=== PATIENT | female | born 1930 | race Caucasian/White ===

== ENCOUNTER 2017-06-15 11:09 | Emergency (ER) | payer MEDICARE, OTHER ==
[2017-06-15 11:21] VITALS: BP 158/98
--- NOTE | 2017-06-15 13:07 | ERNOTE ---
Medical Problem HPI - Narrative Date of Service: 06/15/17 - General Chief Complaint: General Assessment Time Seen by Provider: 06/15/17 11:23 Source: family Exam Limitations: no limitations - Immun/Allergies/Home Medications Immunizations: IMMUNIZATION HX Immunizations Up to Date Yes History of Influenza Vaccine No Allergies/Adverse Reactions: Allergies No Known Allergies Allergy (Verified 06/15/17 11:21) Home Medications: HOME MEDICATIONS Calcium Carbonate/Vitamin D3 [Calcium 500 + Vit D3 400 Tab] 1 tab PO DAILY 10/17 [Last Taken 11/09/14 12:00 1TAB] Folic Acid 1 mg PO DAILY 10/17/14 [Last Taken 11/10/14 08:00 1MG] Magnesium 200 mg PO DAILY 10/17/14 [Last Taken 11/10/14 08:00 200MG] Metoprolol Succinate [Toprol Xl] 50 mg PO BID 10/17/14 [Last Taken 11/09/14 12: 00 50MG] Multivitamin [Multi Vitamin Daily] 1 each PEG DAILY 10/17/14 [Last Taken 08:00 1TAB] Omeprazole [Prilosec] 20 mg PO DAILY 10/17/14 [Last Taken 11/10/14 08:00 20MG] Ferrous Sulfate 325 mg PO TID 08/04/15 [Last Taken Unknown] Levothyroxine Sodium [Levoxyl] 25 mcg PO DAILY 08/04/15 [Last Taken Unknown] Polyethylene Glycol 3350 [Miralax] 17 gm PO DAILY 08/04/15 [Last Taken Unknown] - History of Present History Narrative: Clogged G-tube since this morning. No other problems or complaints. Had G- tube originally placed 5 years ago. Last changed several months ago. Timing: constant Modifying Factors - (Improves): Present: other - nothing Review of Systems - Review of Systems Constitutional: Absent: fever - Patient's Past Medical History Patient History - Medical: Anemia, Arthritis, Dementia, Osteoarthritis, Osteoporosis, UTI'S Patient History - Cardiac/Respiratory: CHF, COPD, Hypertension Patient History - Cancer: No Hx of Cancer Patient History - Surgical Procedures: Cataracts, Colonoscopy, EGD, Other Patient History - Other: None - Family History Mother Family History - Medical: Family History - Cardiac/Respiratory: No pertinent hx Father Family History - Medical: Family History - Cardiac/Respiratory: No pertinent hx - Social History Living Situations: home Abuse History: No History of abuse Psych History: No pertinent hx Alcohol Use: none Drug Use: none - Immunizations Immunizations Up to Date: Yes History of Influenza Vaccine: No Physical Exam - Physical Exam General Appearance: Present: no apparent distress Head Exam: Present: normal inspection Eye Exam: Normal inspection: bilateral Respiratory: Present: no respiratory distress Gastrointestinal/Abdominal: Present: normal bowel sounds, nontender, nondistended, soft, other - G-tube clogged. No infectio at the G-tube site Extremity Exam: Present: other - no deformity Neurological Exam: Present: alert Skin Exam: Present: normal color, warm/dry ED Progress - Vital Signs Patient's Vital Signs:: I have reviewed the patient's vital signs. Vital Signs: Vital Signs 06/15/17 11:17 Temperature 36.1 C L Pulse Rate 83 Respiratory 12 Rate Blood Pressure 158/98 O2 Sat by Pulse 96 Oximetry - Progress/Reassessment Chief Complaint: General Assessment Progress Note-Subjective: 06/15/17 13:04 I was physically unable to unclog the tube and multiple attempts were made. The tube will need to be changed but this hospital does not have the same tube. I offered to place a [facility] temporarily until they could go to the [place] to have the the same tube placed but caregiver did not want this. She wanted to take her to [facility] to have the same tube placed. I spoke with Dr Gipson and transfer paperwork was filled out. Patient accepted for transfer. Departure Clinical Impression: Gastrostomy tube obstruction - Departure Disposition: [facility] Condition: Stable Additional Instructions: Return if you change your mind about having a temporary G-tube placed here or if her condition worsens or changes in any way. I have spoken to the [facility] so they know you are coming up there. Referrals: Ramirez Rowe MD [Primary Care Provider] -
== END 2017-06-15 13:10 | disposition short-term general hospital (02) ==
LOC: ER 11:09
DX: T85.598A Other mechanical complication of other gastrointestinal prosthetic devices, implants and grafts, initial encounter (principal); D64.9 Anemia, unspecified; M19.90 Unspecified osteoarthritis, unspecified site; I50.9 Heart failure, unspecified; J44.9 Chronic obstructive pulmonary disease, unspecified; I10 Essential (primary) hypertension; F03.90 Unspecified dementia, unspecified severity, without behavioral disturbance, psychotic disturbance, mood disturbance, and anxiety